=== PATIENT | male | born 1960 | race Caucasian/White ===

== ENCOUNTER 2017-03-12 07:51 | Day surgery (SDC) | payer BC ==
[2017-03-12 08:13] VITALS: BMI 32.9
[2017-03-12] MEDS ORDERED: Lactated Ringer's 500 ML IV SCH (09:00)
[2017-03-12] MEDS ORDERED: Lidocaine Hydrochloride 5 ML INJ ONE (09:10)
[2017-03-12] MEDS ORDERED: Propofol 10 mg/ml Inj (20 ML) ONE (09:10)
[2017-03-12] MEDS ORDERED: Albuterol-Ipratrop 3 mg / 0.5 (3 ml) UD INH STA (09:33)
[2017-03-12] MEDS ORDERED: Lactated Ringer's 500 ML IV ONE ×2 (10:11)
[2017-03-12 11:08] VITALS: TEMP 97.3
[2017-03-12 11:19] VITALS: O2SAT 99
[2017-03-12 12:06] VITALS: BP 110/61; PULSE 65; RESP 18
== END 2017-03-12 12:00 | disposition home or self-care (01) ==
LOC: C.ENDO 07:51
PROVIDERS: ATTEND Internal Medicine Gastroenterology
DX: D12.2 Benign neoplasm of ascending colon (principal); K12.0 Recurrent oral aphthae; K29.50 Unspecified chronic gastritis without bleeding; K64.8 Other hemorrhoids; D12.4 Benign neoplasm of descending colon
CPT/HCPCS: 43239; 45388; 82948; 88305; J2704; J7120